=== PATIENT | male | born 1955 | race Caucasian/White ===

== ENCOUNTER 2016-07-16 10:38 | Inpatient (IN) | payer MEDICARE, MEDICAID ==
[~2016-07-16] VITALS: Ht 170.2 cm; Wt 100.7 kg
[~2016-07-16 10:38] MED LIST: ASPIRIN EC81 MG PO; CARVEDILOL25 MG PO; COLACE-DPS100 MG PO; COZAAR DPS25 MG PO; DURAGESIC-1212 MCG TD; LASIX DPS80 MG PO; LIPITOR DPS20 MG PO; LORTAB 10-3251 EACH PO; MAALOX DPS30 ML PO; MULTIPLE VITAM1 EACH PO; NITROSTAT0.4 MG SL; PEPCID DPS20 MG PO; PHOS-LO667 MG PO; PROVENTIL2.5 MG/0.5 IH; RENVELA800 MG PO; TYLENOL DPS325 MG PO; ZITHROMAX TRI-500 MG PO; ZYLOPRIM-DPS300 MG PO
--- NOTE | 2016-07-17 10:00 | ER ---
ADMIT: 07/16/2016 RM/LOC: 312 [facility] MR#: [id number] [address] [address] CHARLEY LEVINE [address] [place] [address] Emergency Room Report SEX: M AGE: 60 : 1955 DATE: 07/16/2016 HISTORY OF PRESENT ILLNESS: As a matter of fact, this 60-year-old male was contacted Dr. Abraham today, and he was told that he did not have any opening to come to the emergency room. He has complained fever, dizziness, and weakness for 7 days. He was dialyzed this morning, but has been ill for 1 week. He is also complaining of shortness of breath, which is moderate. He is a very poor historian. He is unable to even tell us anything about his past medical history. REVIEW OF SYSTEMS: Some weakness and shortness of breath. PAST MEDICAL HISTORY: Pretty extensive on the way we found all this out if I going to his past records. He has had an acute NM when he was in his early 40s. He also had a 5-vessel CABG. He has had cardiomegaly and pulmonary vascular congestion. He had some stents placed and replaced. He is on dialysis. He had renal cancer, lost one kidney and that is why he is on dialysis at this point. He has had major GI bleeds. At one point, he received 30 units pack red cells over several days. He has anemia of chronic disease, end-stage renal disease, type 2 diabetes, hypertension, COPD, hyperlipidemia, gout, GERD with gastritis, chronic low back pain due to severe advanced DJD in the lumbosacral spine, and osteoarthritis. He does have an AICD, which he did not report either. We found that out by looking at his x- rays. MEDICATIONS: 1. Renvela. 2. Calcium. 3. Furosemide. 4. Losartan. 5. Famotidine. 6. Atorvastatin. 7. Aspirin. 8. Allopurinol. 9. Carvedilol. 10.Nitroglycerin as needed. 11.Multivitamin. 12.Hydrocodone. ALLERGIES: HE REPORTS BEING ALLERGIC TO PENICILLIN, CEPHALOSPORIN, CODEINE, DARVOCET, AND MORPHINE, BUT HE IS ON KEFLEX AT THIS POINT FOR RESPIRATORY INFECTION PER DR. ABRAHAM'S OFFICE. PHYSICAL EXAMINATION: GENERAL: He looks pretty uncomfortable, anxious. VITAL SIGNS: Blood pressure 96/48 with a heart rate of 78, respirations 20, temp is 102.9, and O2 sats 95%. HEENT: Normal inspection nasal mucosa patent. No lymphadenopathy. RESPIRATIONS: Decreased air movement. ABDOMEN: Distended. Increased bowel sounds. No tenderness. ADMIT: 07/16/2016 RM/LOC: 312 [facility] MR#: [id number] [address] [address] CHARLEY LEVINE [address] [place] [address] Emergency Room Report SEX: M AGE: 60 : 1955 CVS: Regular in rate and rhythm. SKIN: Pale, diaphoretic. EXTREMITIES: Nontender. No edema. NEURO: Depressed mood. Sepsis protocol started on him as he screened severe sepsis immediately. He was given a bag of fluids and then another started on the opposite arm. DIAGNOSTIC DATA: EKG 70 sinus rhythm. Troponin 0.025. Lactic acid is normal at 1.3. WBC is 3.2 with a hemoglobin of 9.7, hematocrit is 27.7 with a platelet of 133, BUN is 27, glucose 110, creatinine is 5.5, and albumin 5.1 with a GFR of 10. INR 1.15. PT 12.0. Flu screen was negative. EKG was not read as a pneumonia. The report stated that he has some atelectasis rather than pneumonia. No signs of pneumonia per radiologist's report; however, the patient's short of breath most likely can be considered as a COPD with exacerbation. Dr. Abraham contacted. Orders received. The patient will be going to intensive care unit due to his low blood pressure on map of 60. CLINICAL IMPRESSION: 1. Chronic obstructive pulmonary disease exacerbation. 2. Hypotensive. 3. Severe sepsis. 4. Renal insufficiency. Awaiting room placement at this time, and the patient notified. He has been started on fluid resuscitation, fluid per sepsis protocol and also started on antibiotic therapy based on x-ray and COPD. We started him on azithromycin and Levaquin. FIFI Landers / Ortega Gaming MD / modl JOB #: [id number] CC: Arya Abraham MD, Attending Physician Arya Abraham MD, Family Physician
--- NOTE | 2016-07-18 09:47 | HP ---
ADMIT: 07/16/2016 RM/LOC: 433 [facility] MR#: [id number] [address] [address] CHARLEY TANNER [address] [place] [address] History and Physical SEX: M AGE: 60 : 1955 DATE OF SERVICE: CHIEF COMPLAINT: Fevers, chills, cough, and shortness of breath. CLINICAL HISTORY: Mr. Tanner is a chronically ill, 60-year-old, white male, admitted to [facility] after being seen in the ER on the afternoon of 07/16/2016. He presented to the ER complaining of fever and chills with cough and shortness of breath. The patient has end-stage renal disease and was seen at dialysis on the morning of 07/16/[address] Stuart. He was noted to be febrile with a temp of 101-102. When he presented to dialysis, he was having chills, cough, and was just quite generally weak. The patient was sent from dialysis to the ER for evaluation. It is noted that he has been sick for about 5 to 6 days. He had the onset last Saturday on 07/11/2016 of nasal congestion, stuffy head and sinuses with a slight cough. He notes that his son who lives with him had been diagnosed last week with an acute bronchitis and upper respiratory infection. The patient notes that his cough and congestion got worse. He was feeling a little worse on 07/12/2016, but did not call our office until the afternoon of 07/13/2016 after he had completed his dialysis on Saturday. At that point, he was not febrile. He was having some chest congestion and sinus congestion and we called out Augmentin for him. He was started on Augmentin 875 mg b.i.d. He notes over the weekend his chest congestion got worse, but he did not really start running a fever until Saturday on 07/15/2016. He did have some chills on Saturday evening, cough was minimally productive. He notes upon awakening on the morning of 07/16/2016, he was feeling significantly worse but he got up and went to dialysis. He had dialysis but after being evaluated at dialysis was to told to either contact our office or go to the ER. After contacting me at the office, I instructed him to go to the ER given his rather acute symptoms. He is evaluated in the ER, where his chest x-ray showed changes of COPD, but no acute infiltrates. No evidence of heart failure. His temp in the ER was 102.9. He was noted to be hypotensive with a blood pressure of 96/48. They felt he met sepsis criteria. His lab workup though was not that remarkable in the ER, his white count was 3300. His procalcitonin and lactic acid were both normal, but given his fever of 102.9, his respiratory difficulty, and his hypotension, it was felt best to admit the patient to the ICU for aggressive treatment of what appears to be in an acute bronchitis and COPD exacerbation as well as possible sepsis. As noted, the patient is chronically ill with a history of COPD; coronary artery disease; end-stage renal disease, on hemodialysis; as well as past history of renal cell carcinoma for which he has undergone a previous nephrectomy. The patient is normally followed by Dr. Stuart for his hemodialysis, so Dr. Stuart is to be consulted at the time of admission. 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 He had been hospitalized as an outpatient for biopsy of that right shoulder mass on 11/10/2015 here at [place]. He was last hospitalized here as an inpatient in April of 2015, hospitalized at that time with some atypical ADMIT: 07/16/2016 RM/LOC: 433 [facility] MR#: [id number] [address] [address] CHARLEY TANNER [address] [place] [address] History and Physical SEX: M AGE: 60 : 1955 chest pain as well as with upper respiratory infection and COPD exacerbation. The patient was hospitalized in September of 2013 with shortness of breath and some atypical chest pain. In September of 2012 with congestive heart failure due to volume overload. It was at that time that he was started on hemodialysis. He has been ongoing hemodialysis now since September of 2012. He was hospitalized in April of 2012 for his end-stage renal disease as well. The patient does have history of renal cell carcinoma and had a left nephrectomy in July of 2005. He developed progressive renal failure following that left nephrectomy. He has had no evidence of recurrence of his renal cell carcinoma since 2005. Other significant past history is a history of prior GI bleeds. He was hospitalized in February of 2015, actually had two or three admissions over a short period of time. At one point, required transfusion with approximately 30 units of packed cells over several day time. He is ultimately found to have a Dieulafoy lesion in the stomach that was oversewn and that put into his recurrent GI bleeds. He has had multiple EGDs and colonoscopies in the past. He has not had a significant cardiac event in the last 19 to 20 years. His medical problems are noted to include: 1. End-stage renal disease, on hemodialysis. 2. Status post left nephrectomy for renal cell carcinoma. 3. Type 2 diabetes. 4. Hypertension. 5. Chronic obstructive pulmonary disease. 6. Hyperlipidemia. 7. Atherosclerotic coronary vascular disease, status post three-vessel CABG in 1995. 8. Gout/hyperuricemia. 9. Anemia of chronic disease due to his end-stage renal disease. 10.Secondary hyperparathyroidism. 11.Chronic gastroesophageal reflux disease with gastritis. 12.Past history of GI bleeds. 13.Chronic low back pain. 14.Advanced degenerative disk disease, lumbosacral spine. 15.Generalized osteoarthritis. 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 CURRENT MEDICATIONS: Include the followin. Losartan 25 mg daily. 2. Atorvastatin 20 mg at bedtime. 3. Pepcid 20 mg daily. 4. Renvela 3200 mg t.i.d. 5. Nitrostat sublingual p.r.n. chest pain. 6. Augmentin 875 mg one b.i.d., started on 07/13/2016. 7. Calcium acetate 667 mg three caps t.i.d. 8. Lasix 80 mg one and half tablet in the a.m. and one tablet in the p.m. 9. Allopurinol 300 mg daily. 10.Lortab 5/325 t.i.d. p.r.n. back pain. 11.Coreg 12.5 mg b.i.d. ADMIT: 07/16/2016 RM/LOC: 433 [facility] MR#: [id number] [address] [address] CHARLEY TANNER [address] [place] [address] History and Physical SEX: M AGE: 60 : 1955 12.Docusate sodium 100 mg daily. 13.Baby aspirin 81 mg daily. 14.Multivitamin one daily. ALLERGIES: HE HAS HAD AN ALLEGED REACTION TO PENICILLIN IN THE PAST, BUT WAS PRESCRIBED AUGMENTIN ON 07/13/2016 WITHOUT ANY APPARENT REACTION. HE ALSO HAS HAD A SKIN RASH FROM KEFLEX IN THE PAST. HAS ALSO HAD A REACTION TO CODEINE, DARVOCET, AND MORPHINE. SOCIAL HISTORY: The patient notes he quit smoking in 1987 when he had his first CA. He has been totally disabled due to his cardiac status since 1987. He does not consume alcoholic beverages. He is . He has no history of illicit drug use and likewise, no history of abuse of prescription drugs. FAMILY HISTORY: His father of pulmonary complications related to asbestos exposure. His mother of an acute CA at a young age. He has a brother, who also had similar onset of severe coronary artery disease at a young age. Strong history of heart disease and strokes in his family. REVIEW OF SYSTEMS: CONSTITUTIONAL: The patient notes the onset of URI symptoms on 07/11/2016 and has slowly got worse since that time. Prior to that, he had been feeling well. Tolerating his three times a week dialysis without too much difficulty. He has had nasal congestion, scratchy throat, and increased cough for the five days prior to admission. The patient does have a history of chronic fatigue related to his end-stage renal disease, noting that he always feels totally exhausted for the remainder of the day following his hemodialysis. The patient's appetite is always good. He has had no recent weight loss. HEENT: Complaining of nasal congestion, sinus congestion, and some postnasal drainage. No recent vision change. He denies any swallowing difficulties. PULMONARY: The patient does have history of COPD. He is a former smoker. He has had increased cough and increased sputum production over the last 3 days. No pleuritic chest pain. No hemoptysis. CARDIAC: Extensive cardiac history dating back to 1987. He has had no recent angina. Has not taken a sublingual nitroglycerin for quite some time. He denies orthopnea or PND. The patient does have a history of obstructive sleep apnea, but is intolerant of CPAP. The patient notes that he usually sleeps sitting up. GASTROINTESTINAL: Past history of chronic gastritis and GERD. History of prior GI bleeds. History of previous Dieulafoy lesion of his stomach. He is having no nausea, vomiting, or diarrhea at this time. GENITOURINARY: Despite his end-stage renal disease, this patient still does produce urine. He voids multiple times a day. No dysuria or flank pain. Previous history of left nephrectomy for renal cell carcinoma. No evidence of recurrence. He is noted to have a history of IgA nephropathy as well. Followed by Dr. Stuart for his renal disease and ongoing hemodialysis. MUSCULOSKELETAL: Chronic intractable back pain due to his lumbar spinal stenosis. Lumbar disk disease. Also, has history of gout. 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 NEUROLOGIC: No history of strokes, seizures, or TIAs. No unusual headaches. ENDOCRINE: He is a type 2 diabetic. Blood sugars are usually well controlled. HEMATOLOGIC: He has history of chronic anemia related to his renal disease. Does have past history of significant GI bleed with acute blood loss anemia, but no recent melena or hematochezia. PSYCHIATRIC: He denies depression or any significant anxiety issues at this time. PHYSICAL EXAMINATION: VITAL SIGNS: On admission to the ICU, temp were 100.1, it had been 102.9 in the ER; pulse was 66; respirations 16; following IV fluid resuscitation in the ER, blood pressure is 128/80 on admission to the ICU; and O2 saturation 93%. GENERAL: The patient is a very obese 60-year-old male. He appears older than his stated age. He is in no acute distress at this time. Not having any significant respiratory distress. He is on O2. SKIN: Warm and dry. INTEGUMENT: No worrisome lesions noted. No rashes. HEENT: His ears are clear. Pupils are equal and reactive. Sclerae nonicteric. His oral mucous membranes are moist. No oral lesions. Gag reflex is intact. He does have some minimal mucoid postnasal drainage. NECK: Supple. Thyroid not enlarged. No neck masses. No neck vein distention. No carotid bruits. LUNGS: Noted to be diminished in the bases. He has no dullness to percussion. He has some upper airway rhonchi and a few coarse rhonchi in both lung maldonado. The patient is noted to have an AICD defibrillator pacemaker in his right upper chest. He has some tenderness in the right posterior shoulder around the area where he has had previous resection of a tumor. HEART: Noted to have a regular rhythm. No murmurs. No lifts, thrills, or heaves. ABDOMEN: Quite protuberant, obese, nondistended. I cannot appreciate any abdominal masses or organomegaly. Bowel sounds normoactive. No abdominal bruits. GENITALIA: Normal male. EXTREMITIES: Have only a trace of pedal and ankle edema. No evidence of thrombophlebitis. No calf tenderness. He has limited mobility on both shoulders. He has a scar over his right posterior shoulder with a large muscle defect. NEUROLOGICAL: He is intact with no focal deficit. He is weak, but is able to sit up on the side of the bed without significant orthostatic symptoms. MENTAL STATUS EXAMINATION: He is oriented x3 at the time of my exam. No bizarre ideation. No significant memory deficits. ASSESSMENT: At the time of admission: 1. Acute febrile illness with temperature of a 102.9 in the ER. 2. Early sepsis. ADMIT: 07/16/2016 RM/LOC: 433 [facility] MR#: [id number] [address] [address] CHARLEY TANNER [address] [place] [address] History and Physical SEX: M AGE: 60 : 1955 3. Acute bronchitis versus pneumonia. 4. Acute chronic obstructive pulmonary disease exacerbation. 5. Atherosclerotic coronary vascular disease, status post prior coronary artery bypass graft. 6. Chronic diastolic heart failure. 7. End-stage renal disease, on hemodialysis. 8. Type 2 diabetes. 9. Advanced degenerative disk disease, lumbosacral spine. 10.Lumbar spinal stenosis. 11.History of renal cell carcinoma, status post nephrectomy. 12.Anemia of chronic disease. 13.History of low-grade sarcoma with wide local excision of right posterior shoulder. PLAN: Plan is to admit the patient to the ICU. We will get an urgent Critical Care consult to help manage for possible sepsis. Although, his white count on admission is noted to be normal at 3300, procalcitonin on admission is 0.47, and lactic acid is 1.3. We will treat for possible sepsis using a combination of IV Zosyn, IV Levaquin, and IV vancomycin. We will ask Dr. Gaitan to see him in consultation. We will also ask Dr. Stuart to see him in consultation. We will treat aggressively for this respiratory infection and possible sepsis. Dr. Stuart will manage his inpatient hemodialysis while he is in the hospital. Arya Lee MD/ hellen JOB #: [id number] CC: Arya Lee, Attending Physician Arya Lee, Family Physician
[2016-07-20] MEDS ORDERED: COZAAR DPS25 MG PO (20:42)
[2016-07-20] MEDS ORDERED: PEPCID DPS20 MG PO (20:42)
[2016-07-20] MEDS ORDERED: NITROSTAT0.4 MG SL (20:42)
[2016-07-20] MEDS ORDERED: RENVELA800 MG PO (20:42)
[2016-07-20] MEDS ORDERED: LIPITOR DPS20 MG PO (20:42)
[2016-07-20] MEDS ORDERED: LASIX DPS80 MG PO (20:43)
[2016-07-20] MEDS ORDERED: ZYLOPRIM-DPS300 MG PO (20:43)
[2016-07-20] MEDS ORDERED: PHOS-LO667 MG PO (20:43)
[2016-07-20] MEDS ORDERED: LASIX DPS40 MG PO (20:43)
[2016-07-20] MEDS ORDERED: THERA1 EACH PO (20:44)
[2016-07-20] MEDS ORDERED: ASA CHILDREN'S81 MG PO (20:44)
[2016-07-20] MEDS ORDERED: DUONEB DPS3 ML IH (20:44)
[2016-07-20] MEDS ORDERED: NORCO 5-325 TA1 EACH PO (20:44)
[2016-07-20] MEDS ORDERED: COLACE-DPS100 MG PO (20:44)
[2016-07-20] MEDS ORDERED: COREG DPS12.5 MG PO (20:44)
[2016-07-20] MEDS ORDERED: TYLENOL DPS325 MG PO (20:45)
[2016-07-20] MEDS ORDERED: LEVAQUIN DPS250 MG PO (20:45)
[2016-07-20] MEDS ORDERED: DELTASONE DPS10 MG PO (20:45)
--- NOTE | 2016-07-23 10:29 | CO ---
ADMIT: 07/16/2016 RM/LOC: [address] [facility] MR#: [id number] [address] [address] CHARLEY LEVINE [address] [place] [address] Consultation SEX: M AGE: 60 : 1955 DATE OF CONSULTATION: 07/16/2016 ATTENDING PHYSICIAN: Arya Lee CONSULTING PHYSICIAN: Rishabh Gaitan MD HISTORY OF PRESENT ILLNESS: He is 60 years of age, admitted through the ER with possible pneumonia, sepsis, and septic shock. This gentleman is disabled because of his cardiac situation. He is a disabled sales exec. He has type 2 diabetes. He had three-vessel bypass surgery done in [place] in 1997, when he had given up smoking. He follows with [facility], and he has 36% ejection fraction. He also has a right-sided pacemaker put in. He has chronic kidney disease, undergoing hemodialysis three times a week. He has a fistula in his left arm. He did get the hemodialysis on last Saturday, last Saturday, and today. He has been running fever, chills, cough, shortness of breath, some last week Saturday. He got started on Keflex from Saturday. Today, he was in the ER with worsening symptoms, temperature over 102 and shaking chills, body aches. His influenza screen has been negative. He had the laboratory investigation done from the ER which showed white count 3.3, hemoglobin 9.7, and platelets 133. Creatinine was 5.5. BUN was 110, potassium 3.7, phosphorous was 2.0. Procalcitonin 0.47, lactic acid 1.3. Chest x-ray was reviewed by myself and was compared with the one from 05/25/2015, I do not see any change. He has got this tunnelled wire. He has the pacemaker with the generator in the right infraclavicular area and cardiomegaly. I did not see any distinct pneumonia. He has been started on levofloxacin, an order has been also given for azithromycin and meropenem and Solu-Medrol which will be continued with the exception of the Zithromax. I am going to add vancomycin to the regimen. He has been a smoker until 1997 when he had the cardiac bypass surgery. He also had history of colon cancer operated in the early 1999. He did not require any chemo or radiation therapy. He does have a ventral herniation. He has exogenous obesity. His blood gases show a pH of 7.48, PCO2 of 34.5, and PO2 of 62. His saturation was 94% on room air. I had put him on some oxygen. His troponin was not elevated. BNP will be done. PHYSICAL EXAMINATION: GENERAL: On general physical examination, he is alert and oriented, although some of the dates he was not quite sure. He has no edema. No calf tenderness. He is obese. ABDOMEN: He has distended abdomen. No organomegaly. Ventral herniations. Bowel sounds present. HEART: No heart murmur. CHEST: He has minimal rhonchi bilaterally. NECK: No neck vein distention or clubbing. He is alert. His pupils are reactive. I have reviewed his chest x-ray. ADMIT: 07/16/2016 RM/LOC: [address] [facility] MR#: [id number] [facility] [address] [address] CHARLEY LEVINE [address] [place] [address] Consultation SEX: M AGE: 60 : 1955 IMPRESSION: Sepsis, exact source unclear. It could be urinary tract infection. It could be pneumonia. It could be sepsis with blood-borne infection. Cardiomyopathy, ejection fraction 36%. Coronary artery disease, status post bypass surgery in 1997. History of tobacco use until then. Chronic kidney disease, on hemodialysis under the care of Dr. Stuart. Regarding recommendations, I am going to add vancomycin to the regimen and will discontinue azithromycin. Continue the steroid. Add Protonix daily and Lovenox daily for PUD and DVT prophylaxis respectively. We will also use SCDs. Check lab in the morning. Overall, prognosis is guarded. Rishabh Gaitan MD/ hellen JOB #: [id number] CC: Arya Lee, Attending Physician Arya Lee, Family Physician Arya Lee MD
--- NOTE | 2016-07-27 15:59 | CO ---
ADMIT: 07/16/2016 RM/LOC: 312 [facility] MR#: [id number] ACC#: [id number] [address] [address] CHARLEY LEVINE [address] [place] [address] Consultation SEX: M AGE: 60 : 1955 DATE OF CONSULTATION: 07/17/2016 ATTENDING PHYSICIAN: Arya Lee CONSULTING PHYSICIAN: James Stuart MD REASON FOR CONSULTATION: End-stage renal disease, on hemodialysis. HISTORY OF PRESENT ILLNESS: The patient is a pleasant 60-year-old gentleman, who is well known to me. He typically dialyzes on Saturday, Saturday, Saturday schedule. His last dialysis was yesterday. He has been feeling unwell for the last 4 days. He has been having some chills and rigors at home. He has also been having a productive cough. He had a fever of 101.5, Saturday night. He presented to the hospital yesterday and was admitted to the ICU with respiratory failure and sepsis. He was given almost 3.5 L of IV fluids and he is hemodynamically stable. His chest x-ray did not show an obvious infiltrate, but he was covered with broad-spectrum antibiotics. His fever has defervesced now. He feels much better. He continues to have a cough. He reports he has a good appetite now. He feels almost back to baseline. He still makes some urine and denies any urinary complaints. REVIEW OF SYSTEMS: A complete review of systems is negative in detail except as mentioned in history of present illness above. PAST MEDICAL HISTORY: 1. End-stage renal disease, secondary to IgA nephropathy. He dialyzes on a Saturday, Saturday, Saturday schedule. Access, left upper arm AV fistula. 2. Left kidney renal cell carcinoma, status post nephrectomy in the year 2004. 3. Type 2 diabetes mellitus. 4. Hypertension. 5. COPD. 6. Hyperlipidemia. 7. Coronary artery disease, status post CABG. 8. Gout. 9. Anemia of chronic kidney disease. 10.Secondary hyperparathyroidism. 11.GERD. ALLERGIES: CODEINE, PENICILLIN, DARVOCET, DURICEF, AND MORPHINE. MEDICATIONS: Reviewed in the chart. FAMILY HISTORY: No family history of chronic kidney disease or renal replacement therapy. SOCIAL HISTORY: He is . He lives at home. Previous history of smoking. He quit smoking in the year 1997. He denies any alcohol or recreational drug use. ADMIT: 07/16/2016 RM/LOC: 312 [facility] MR#: [id number] [address] [address] [facility] [address] [place] [id number] Consultation SEX: M AGE: 60 : 1955 PHYSICAL EXAMINATION: VITAL SIGNS: Temperature 97.5 Fahrenheit, pulse 71, blood pressure 145/72, and saturating 95% on 2 L nasal cannula. GENERAL: He is comfortable. HEENT: Head is nontraumatic and normocephalic. Extraocular movements intact. No conjunctival pallor. NECK: Supple without JVD. CHEST: Clear to auscultation. CVS: Regular rhythm. S1 and S2. No rubs, murmurs, or gallops. ABDOMEN: Soft and nontender. EXTREMITIES: No edema. SKIN: No rash or nodules. NEUROLOGIC: Alert, awake, and oriented x3. PSYCHIATRIC: Affect and memory within normal limits. MUSCULOSKELETAL: Major joints within normal limits. ACCESS: Left arm AV fistula with good thrill and bruit. LABORATORY DATA: Reviewed. BMP with a sodium 137, potassium 4.3, CO2 of 24, creatinine 6.7, and calcium 9.1. Hemoglobin 9.1. His ABG with a pH of 7.457 and CO2 is 33.6. Chest x-ray without any obvious infiltrate. He does have cardiomegaly. ASSESSMENT/PLAN: 1. End-stage renal disease, on hemodialysis. 2. Viral pneumonia/chronic obstructive pulmonary disease exacerbation. 3. Anemia in chronic kidney disease. 4. Renal osteodystrophy. There is no indication for renal replacement therapy today. I will check labs to monitor sequelae of chronic kidney disease. Continue phosphate binders for the time being. I will also monitor his urine output since he does reasonably well from a volume perspective. He otherwise appears euvolemic today. I will follow him for his dialytic needs during the course of stay in the hospital. Thank you for this consultation and allowing me the opportunity to participate in this patient's care. Please do not hesitate to contact me with any questions. James Stuart MD/ hellen JOB #: [id number] CC: Arya Lee, Attending Physician Arya Lee, Family Physician
--- NOTE | 2016-08-24 13:11 | DS ---
ADMIT: 07/16/2016 RM/LOC: 433 [facility] MR#: [id number] [facility]#: [id number] [address] [address] CHARLEY TANNER [address] [place] [address] General Discharge Summary SEX: M AGE: 60 : 1955 ADMISSION DATE: 07/16/2016 DISCHARGE DATE: 07/20/2016 ADMITTING DIAGNOSIS: As per history and physical. FINAL DIAGNOSES: 1. Sepsis. 2. Severe sepsis with septic shock. 3. Human metapneumovirus pneumonia. 4. Acute chronic obstructive pulmonary disease exacerbation. 5. End-stage renal disease, on hemodialysis. 6. Ischemic cardiomyopathy. 7. Chronic diastolic congestive heart failure. 8. Secondary hyperparathyroidism. 9. Type 2 diabetes. 10.Anemia of chronic disease. 11.Hyperlipidemia. 12.Gout. 13.Chronic gastroesophageal reflux disease. 14.Morbid obesity. 15.Atherosclerotic coronary vascular disease, status post prior coronary artery bypass graft. 16.Obstructive sleep apnea. 17.Polyosteoarthritis. 18.Degenerative disk disease, lumbosacral spine. 19.History of renal cell carcinoma, status post nephrectomy, clinically no evidence of disease. 20.Tobacco use disorder, in full sustained remission. COMPLICATIONS: None. OPERATIONS: Hemodialysis done on inpatient basis. CLINICAL HISTORY: Mr. Tanner is a 60-year-old, chronically ill male admitted to [facility] after being seen in the ER on the afternoon of 07/16/2016. The patient had presented to the ER with fever, chills, cough, and shortness of breath. The patient had dialysis on the morning of admission and noted to have a temp at dialysis of 101-102. He was sent from dialysis to the ER where he was evaluated and there were concerns for sepsis and pneumonia. The patient was having significant respiratory distress. His fever in the ER was 102.9. For that reason, it was felt best to admit to the ICU for aggressive treatment of pneumonia and possible sepsis. For further details of the clinical history as well as past medical history and pertinent findings on physical exam, please see dictated history and physical. Also see Dr. Stuart's dictated consultation. LABORATORY AND X-RAY SUMMARY FROM THIS ADMISSION: For complete lab, please see cumulative laboratory summary included in the chart. Brief synopsis of lab; on admission, his white count was 3300, hemoglobin was 9.7, hematocrit ADMIT: 07/16/2016 RM/LOC: 433 [facility] MR#: [id number] [address] [address] CHARLEY TANNER [address] [place] [address] General Discharge Summary SEX: M AGE: 60 : 1955 29.5, platelets 133,000. At discharge, his white count was 4900. The patient was leukopenic throughout his hospitalization. Hemoglobin was 8.9. At discharge, hematocrit 28.2, platelets were 149,000. His INR on admission was 1.15. Urinalysis on admission was clear. Chemistry studies on admission showed a sodium of 138, potassium 3.7, BUN 27. His creatinine was 5.5, blood sugar 110. His phosphorus was low at 2.0. Chemistry studies were monitored daily. At discharge, his sodium was 140, potassium 4.2, BUN was 80, creatinine was 7.2. On admission, his proBNP was 9538, Procalcitonin was normal at 0.47, lactic acid was 1.3. Fingerstick blood sugars were monitored q.i.d. throughout the hospitalization. Blood gases on admission showed a pH of 7.45, pCO2 of 33, PO2 of 82. Influenza screen was negative. Respiratory viral panel was positive for human metapneumovirus. His blood cultures drawn on admission showed no growth. X-ray studies included serial chest x-rays which showed cardiomegaly without evidence of failure, some chronic interstitial scarring in the lung bases with a permanent pacemaker, and post- sternotomy or postthoracotomy changes of the chest. Serial chest x-ray showed no change. His EKG showed sinus rhythm with first degree AV block with changes of LVH and some nonspecific lateral ST-T wave changes. HOSPITAL COURSE: The patient was admitted, initially placed in the ICU because of his possible sepsis. He was started on IV vancomycin, IV Levaquin, and IV azithromycin. Dr. Stuart was consulted to manage his hemodialysis as an inpatient. He was aggressively treated for his COPD exacerbation. We also went ahead and gave frequent nebulizer treatments to help clear his airways. The patient's hospital course was one of progressive improvement. Once we got him admitted, started on antibiotics, IV fluids, and aggressive bronchopulmonary toilet. His condition improved. Do note that we also added in IV Merrem. His respiratory symptoms progressively improved over each day. His respiratory viral panel confirmed human metapneumovirus and this was felt to be the infectious organism triggering his acute event. He improved. He tolerated his hemodialysis well while in the inpatient setting. Ultimately, we weaned him down off his steroids, and when his blood cultures came back negative, we modified his antibiotic regime. Ultimately, we dismissed him to home on 07/20/2016, his 5th hospital day, with planned followup in our office in 5 to 7 days. At discharge, he was to continue his usual dialysis schedule at the dialysis center and continue routine followup with Dr. Stuart. MEDICATIONS: His medications at dismissal were to include: 1. Baby ASA 81 mg daily. 2. Colace 100 mg daily. 3. Coreg 12.5 mg b.i.d. 4. Lipitor 20 mg daily. 5. Pepcid 20 mg daily. 6. PhosLo 667 mg three capsules t.i.d. 7. Renagel 800 mg four capsules t.i.d. 8. Multivitamin 1 daily. 9. Zyloprim 300 mg daily. 10.DuoNeb via twin jet nebulizer q.i.d. ADMIT: 07/16/2016 RM/LOC: 433 [facility] MR#: [id number] [address] [address] CHARLEY TANNER [address] [place] [address] General Discharge Summary SEX: M AGE: 60 : 1955 11.Levaquin 250 mg once daily for 7 days. 12.Lortab 5/325, one every 4 hours p.r.n. back pain. 13.Tylenol p.r.n. minor discomfort. 14.Nitrostat sublingual p.r.n. chest pain. 15.Losartan 25 mg daily. 16.Lasix 80 mg daily. 17.Prednisone 10 mg b.i.d. for 2 days, then 10 mg daily for 2 days, then 5 mg daily for 2 days and stop, will be on both Levaquin and prednisone for 7 days post hospitalization. FOLLOWUP: Follow up in our office in 5 to 7 days. CONDITION AT DISCHARGE: Stable and improved. PROGNOSIS: Long-term prognosis is poor in view of the multiplicity and severity of his chronic medical problems. Arya Lee MD/ hellen JOB #: [id number] CC: Arya Lee MD, Attending Physician Arya Lee MD, Family Physician
== END 2016-07-20 15:00 | disposition home or self-care (01) | DRG 871 ==
LOC: ER 10:38 → 3ICU 13:00 → 4PCU 13:00 → 3ICU 07-17 08:34 → 4PCU 07-17 17:35
PROVIDERS: ADMIT Family Medicine
PROC: 5A1D60Z (ICD-10-PCS; principal; 2016-07-18)
DX: A41.9 Sepsis, unspecified organism (principal); R65.21 Severe sepsis with septic shock; I13.2 Hypertensive heart and chronic kidney disease with heart failure and with stage 5 chronic kidney disease, or end stage renal disease; J12.3 Human metapneumovirus pneumonia; J44.0 Chronic obstructive pulmonary disease with (acute) lower respiratory infection; N18.6 End stage renal disease; I42.9 Cardiomyopathy, unspecified; I50.32 Chronic diastolic (congestive) heart failure; J44.1 Chronic obstructive pulmonary disease with (acute) exacerbation; N25.81 Secondary hyperparathyroidism of renal origin; E11.22 Type 2 diabetes mellitus with diabetic chronic kidney disease; Z99.2 Dependence on renal dialysis; D63.1 Anemia in chronic kidney disease; E78.5 Hyperlipidemia, unspecified; M10.9 Gout, unspecified; K21.9 Gastro-esophageal reflux disease without esophagitis; E66.9 Obesity, unspecified; Z68.33 Body mass index [BMI] 33.0-33.9, adult; I25.10 Atherosclerotic heart disease of native coronary artery without angina pectoris; K29.50 Unspecified chronic gastritis without bleeding; G47.33 Obstructive sleep apnea (adult) (pediatric); M15.9 Polyosteoarthritis, unspecified; M51.37 Other intervertebral disc degeneration, lumbosacral region; M47.816 Spondylosis without myelopathy or radiculopathy, lumbar region; I25.2 Old myocardial infarction; Z95.810 Presence of automatic (implantable) cardiac defibrillator; Z79.82 Long term (current) use of aspirin; Z95.1 Presence of aortocoronary bypass graft; Z85.528 Personal history of other malignant neoplasm of kidney; Z90.5 Acquired absence of kidney; Z95.5 Presence of coronary angioplasty implant and graft; Z87.891 Personal history of nicotine dependence; Z85.038 Personal history of other malignant neoplasm of large intestine; Z85.831 Personal history of malignant neoplasm of soft tissue; Z82.49 Family history of ischemic heart disease and other diseases of the circulatory system

== ENCOUNTER → 2016-09-13 | Outpatient (CLI) | payer MEDICARE, MEDICAID ==
[~2016-09-13] MED LIST changes: +ASA CHILDREN'S81 MG PO; +COREG DPS12.5 MG PO; +DELTASONE DPS10 MG PO; +DUONEB DPS3 ML IH; +LASIX DPS40 MG PO; +LEVAQUIN DPS250 MG PO; +NORCO 5-325 TA1 EACH PO; +THERA1 EACH PO
== END | disposition home or self-care (01) ==
LOC: RAD.S 14:47
DX: M79.89 Other specified soft tissue disorders (principal); M79.662 Pain in left lower leg

== ENCOUNTER 2016-10-16 11:12 | Emergency (ER) | payer MEDICARE, MEDICAID ==
--- NOTE | 2016-10-21 08:48 | ER ---
ADMIT: 10/16/2016 RM/LOC: ER [facility] MR#: [id number] [address] [address] CHARLEY LEVINE [address] [place] [address] Emergency Room Report SEX: M AGE: 60 : 1955 DATE: 10/16/2016 TIME: 1112 hours. Please refer to my T-sheet for complete H and P. Briefly, the patient is a 60-year-old, who comes in with one week of decreased bowel activity and belly seems distended. He rates it 3/10. He is a dialysis patient. He has a history of renal cell cancer. He has had a nephrectomy. He is saying that he feels okay otherwise. PHYSICAL EXAMINATION: VITAL SIGNS: Blood pressure 129/60, pulse 65, respirations 18, temp 98, and sat 97%. GENERAL: No acute distress. ABDOMEN: Slightly distended and tender. Otherwise exam is unremarkable. EMERGENCY DEPARTMENT COURSE: CBC was normal except white count 3.7, hemoglobin 10.6. Chemistries normal except potassium 2.5, BUN 33, glucose 112, creatinine 6.2, lipase was normal. CT without contrast revealed no bowel obstruction. Constipation. I did give him Reglan 10 mg IV. He had long discussion with him. Offered an enema, he would rather treat it at home. He is ready for discharge. ASSESSMENT: 1. Abdominal pain. 2. Constipated. PLAN: High-fiber diet including apple juice. Follow up with Dr. Lee later this week. Gave him a script for Reglan and may try [id number] [facility]. Mario Smyth MD/ hellen JOB #: [id number] CC: Mario Smyth MD, Attending Physician Arya Lee MD, Family Physician
== END 2016-10-16 13:20 | disposition home or self-care (01) ==
LOC: ER 11:12
DX: K59.00 Constipation, unspecified (principal); R10.9 Unspecified abdominal pain; I12.0 Hypertensive chronic kidney disease with stage 5 chronic kidney disease or end stage renal disease; N18.6 End stage renal disease; I25.2 Old myocardial infarction; Z99.2 Dependence on renal dialysis; Z95.5 Presence of coronary angioplasty implant and graft; Z98.890 Other specified postprocedural states; Z85.528 Personal history of other malignant neoplasm of kidney; Z88.0 Allergy status to penicillin; Z88.5 Allergy status to narcotic agent; Z88.8 Allergy status to other drugs, medicaments and biological substances; Z79.82 Long term (current) use of aspirin; Z79.899 Other long term (current) drug therapy